=== PATIENT | female | born 1995 | race Caucasian/White ===

== ENCOUNTER → 2016-06-23 | Outpatient (CLI) | payer OTHER | LOC: M LAB 07:57 | PROVIDERS: ATTEND Advanced Practice Midwife | DX: R73.02 Impaired glucose tolerance (oral) (principal) ==

== ENCOUNTER → 2016-07-15 | Outpatient (CLI) | payer OTHER ==
--- NOTE | 2016-07-15 17:38 | REP ---
Obstetric sonography: History: Supervision of for growth study. Findings: Scanning demonstrates a viable single intrauterine gestation in a cephalic lie. motion is observed and heart rate is recorded 163 beats per minute. An anterior grade 1 placenta is seen without evidence of previa or abruption. Amniotic fluid is subjectively normal. Closed cervical length is 3.8 cm. No extrauterine abnormality is observed. Umbilical cord is seen draping across the shoulders. The following anatomic structures are identified and felt to be unremarkable: cranium, cavum, lungs, four-chamber heart, left ventricular outflow tract view, diaphragm, left-sided stomach, three-vessel cord, kidneys and bladder, spine. Biometry chart: BPD 8.7 cm = 35 weeks 2 days Head circumference 31.6 cm = 35 weeks 3 days Abdominal 30.3 cm = 34 weeks 2 days Femur length 6.8 cm = 34 weeks 5 days Humeral length 5.9 cm = 34 weeks 0 days HC/AC ratio normal at 1.0, cephalic index normal 0.78, estimated weight 2473 grams 5 pounds 7 ounces, 52nd percentile for 34 weeks 2 days. SHARITA normal 13.7 cm SD ratio in the umbilical cord artery by Doppler normal 2.06. Impression: Viable single intrauterine gestation at 34 weeks 5 days by today's composite sonographic criteria. MORRIS by today's sonography 08/21/2016. Signed by Parish Cason MD 07/16/2016 09:54 A
== END ==
LOC: M RAD 11:35
PROVIDERS: ATTEND Advanced Practice Midwife
DX: O26.843 Uterine size-date discrepancy, third trimester (principal)